=== PATIENT | female | born 1985 | race Caucasian/White ===

== ENCOUNTER 2020-03-11 17:29 | Outpatient (CLI) | payer OTHER, SELFPAY ==
[2020-03-11 17:30] VITALS: BP 166/109; PULSE 90; RESP 16; TEMP 36.1; O2SAT 99; BMI 48.8
--- NOTE | 2020-03-11 17:36 | ED.DCSUM_ITS ---
History of Present Illness Chief Complaint: Flank Pain Informant: Patient Narrative: 34-year-old female presenting with right flank pain. She states she is had this flank pain intermittently since Friday. Friday she went to [facility] where she was diagnosed with a 5 mm kidney stone. She was sent home with Percocet, Naprosyn, Flomax, Phenergan. She states he has had intermittent pain since then. It is worse today. She feels like she may have a UTI. She complains of dysuria. She has no vomiting but is nauseous. She is not had a fever. Patient is supposed to follow-up with Dr. ron tomorrow for initial visit. Past Medical History - Allergies and Home Meds Allergies/Adverse Reactions: Allergies nut - unspecified [nut] Allergy (Verified 03/11/20 18:40) Angioedema sumatriptan [From Imitrex] Allergy (Verified 03/11/20 18:40) Swelling morphine Adverse Reaction (Verified 03/11/20 18:40) Upset Stomach Primary Care Physician: Mello Ron MD [STAFF PHYSICIAN] - [facility] Doctor,Out of [NON-STAFF] - Prior records reviewed: Yes Lives: Spouse/ Significant Other Smoking Status: Unknown if ever smoked Alcohol: None Drugs: None Review of Systems General: Denies: Chills, Fever, Sweats Eyes: Denies: Visual changes - bilaterally, Diplopia ENT: Denies: Rhinorrhea, Sore throat Cardiovascular: Denies: Chest pain, Palpitations Respiratory: Denies: Dyspnea, Cough, Dyspnea on exertion Gastrointestinal: Reports: Abdominal pain - Right sided Genitourinary: Reports: Dysuria, Frequency Musculoskeletal: Reports: Myalgias, Arthralgias, - - Right-sided flank pain Skin: Denies: Rash Neurological: Reports: Headache, Weakness Physical Exam Vital Signs/Narrative: Vital Signs Temp Pulse Resp BP Pulse Ox 03/11/20 17:30 97 F L 90 16 166/109 H 99 General: Acute Distress Head: Normocephalic, Atraumatic Eyes: Perrl, EOMI ENT: Moist mucous membranes Cardiovascular: Regular rate, Regular rhythm Respiratory: No distress, CTA bilaterally Abdomen: Soft, Tender - Tenderness to palpation on the right flank and abdomen. Back: CVA tenderness - Right Extremities: Nontender, No edema Skin: Normal color, No rash Neurological: Alert, Oriented x3 Psychological: Tearful Diagnostic/Tx/Re-eval Clinical Impression(s) from Imaging Studies Abdomen/Pelvis CT 03/11/20 17:56 IMPRESSION: Bilateral renal calculi. Right hydronephrosis and hydroureter with a distal right ureteral stone suspected. Left ovarian cystic nodule. Small hiatal hernia. Hypoattenuated splenic nodule. Electronically Signed: Amrit PuenteDO at 19:02 EDT Tel [phone], Service support , Laboratory Data 03/11/20 03/11/20 03/11/20 18:05 18:05 18:10 WBC 8.0 RBC 4.66 Hgb 13.2 Hct 40.1 MCV 86.1 MCH 28.3 MCHC 32.9 RDW Std Deviation 42.3 RDW Coeff of Olu 13.6 Plt Count 273 MPV 9.0 Immature Gran % (Auto) 0.200 Neut % (Auto) 61.2 Lymph % (Auto) 30.8 [place] % (Auto) 6.3 Eos % (Auto) 1.1 Baso % (Auto) 0.4 Absolute Neuts (auto) 4.9 Absolute Lymphs (auto) 2.48 Nucleated RBC % 0 Sodium 138 Potassium 3.6 Chloride 108 H Carbon Dioxide 25.0 Anion Gap 5 BUN 12 Creatinine 0.96 Estim Creat Clear Calc 58.19 Est GFR (MDRD) Af Amer 84 Est GFR (MDRD) Non-Af 69 BUN/Creatinine Ratio 12.4 Glucose 93 Calcium 9.2 Urine Color Straw Urine Clarity Clear Urine pH 7.0 Ur Specific [place] 1.010 Urine Protein Negative Urine Glucose (UA) Normal Urine Ketones Negative Urine Occult Blood 150 H Urine Nitrite Negative Urine Bilirubin Negative Urine Urobilinogen Normal Ur Leukocyte Esterase Negative Urine RBC 5-10 SEEN Urine WBC 0 SEEN Ur Squamous Epith Cells 0-5 SEEN Urine Bacteria RARE Urine Mucus 0 SEEN - Medical Decision Making Patient presents with right flank pain which had been better throughout the week and now is acutely worsening. She is concerned she either has a urinary tract infection or 1 of the other kidney stones it was in her kidney is descended. I did repeat lab work and this is normal. Kidney function is normal. Urinalysis is negative for infection but does have blood. She was only given Toradol and she had almost total relief of her pain. CT abdomen pelvis does have a 4 mm ureteral stone. Patient states that she has had dysuria and felt like she was unable to void earlier. She also states that her last kidney stone from the other day was 5 mm. She states she still has Percocet at home and follow-up with Dr. Ariadne varela. It is unclear whether this is just a difference in CT read or this is a new kidney stone. He is given return precautions. Impression: 1. 4 mm right ureteral stone 2. Hematuria ED Disposition - Plan for ED Patient: Disposition: Home or Assisted Living Instructions: ED Renal Stone w Colic Referrals: [facility] Doctor,Out of [NON-STAFF] - Mello Ron MD [STAFF PHYSICIAN] -
--- NOTE | 2020-03-11 17:56 | CT_ITS ---
STUDY: CT ABDOMEN AND PELVIS WITHOUT CONTRAST REASON FOR EXAM: Female, 34 years old. RT FLANK PAIN -- HX:KIDNEY STONES,CHOLECYSTECTOMY, X 2 RADIATION DOSAGE (If Supplied By Facility): CTDIvol = ( 23.88 ) mGy, DLP = ( 1097.66 ) mGycm TECHNIQUE: Transaxial images were obtained from the dome of the diaphragm to the symphysis pubis without oral contrast, and without intravenous contrast. Sagittal and coronal images were reconstructed. Individualized dose optimization techniques were used for this CT. COMPARISON: 04/01/2013 FINDINGS: The visualized lung bases are unremarkable. The visualized portions of the heart are within normal limits. Normal liver. Status post cholecystectomy. No significant dilatation of the extrahepatic biliary system. 2 cm hypoattenuated nodule in the spleen. Normal pancreas. Normal bilateral adrenal glands. Nonobstructive up to 3 mm stones in the right kidney. Mild right hydronephrosis and hydroureter. A 4 mm distal right ureteral obstructive stone is suspected. Up to 5 mm nonobstructive stones in the left kidney. Small hiatal hernia. Normal small intestine. Normal colon. The appendix is visualized and appears normal. Normal abdominal aorta. Normal inferior vena cava. Normal retroperitoneum. Normal urinary bladder. Left ovarian 3.5 cm cystic nodule. Normal abdominal wall. Normal osseous structures. CT/Abdomen/Pelvis without Cont IMPRESSION: Bilateral renal calculi. Right hydronephrosis and hydroureter with a distal right ureteral stone suspected. Left ovarian cystic nodule. Small hiatal hernia. Hypoattenuated splenic nodule. Electronically Signed: Amrit Puente DO at 19:02 EDT Tel [phone], Service support ,
[2020-03-11] MEDS: Ondansetron 4 MG/2 ML Vial IV (18:01)
[2020-03-11] MEDS: Ketorolac 30 MG/ML Syringe IV (18:01)
[2020-03-11 18:16] LABS: Mucous, Urine 0 SEEN /hpf (<or=2+); White Blood Cells 0 SEEN /hpf (0-5)
[2020-03-11 18:18] LABS: Color, Urine Straw (Yellow); Glucose, Dipstick Normal (Normal); Ketone-Dipstick Negative (Negative); Leukocyte Esterase-Dipstick Negative /ul (Negative); Nitrite-Dipstick Negative (Negative); Occult Blood-Urine 150 /ul (Negative); Protein-Dipstick Negative (Negative); Urine Bilirubin Dipstick Negative (Negative); Urine Clarity Clear (Clear); Urine Urobilinogen Normal (Normal)
[2020-03-11 18:23] LABS: Red Blood Cells-Urine 5-10 SEEN /hpf (0-5)
[2020-03-11 18:24] LABS: Bacteria RARE /hpf (None Seen); Squamous Epithelial Cells - UA 0-5 SEEN /hpf (5-10)
[2020-03-11 18:24] LABS: Absolute Lymphocyte Count 2.48 X10^3/uL (0.83-4.51); Absolute Neutrophil Count 4.9 X10^3/uL (2.0-7.7); Basophil# 0.03 X10^3/uL; Basophil% 0.4 % (0-1); Eosinophil# 0.09 X10^3/uL; Eosinophils% 1.1 % (0-5); Hematocrit 40.1 % (37-47); Hemoglobin 13.2 g/dL (12.0-15.0); Lymphocyte # 2.48 X10^3/ul (4.0); Lymphocyte % 30.8 % (19-41); Mean Corp Hgb Conc 32.9 g/dL (32-36); Mean Corpuscular Hgb 28.3 pg (27.0-32.0); Mean Corpuscular Volume 86.1 fL (81-99); Monocyte# 0.51 X10^3/uL; Monocyte% 6.3 % (0-10); NRBC Flagged by Analyzer 0 % (0-5); Neutrophil # 4.91 X10^3/uL (2.7-7.7); Neutrophil % 61.2 % (47-70); Platelet Count 273 K/mm3 (150-450); RBC Distribution Width CV 13.6 % (11.6-14.6); RBC Distribution Width SD 42.3 fl (35.1-43.9); Red Blood Count 4.66 M/mm3 (4.2-5.4)
[2020-03-11 18:29] LABS: BUN 12 mg/dL (7-18); Creatinine, Serum 0.96 mg/dL (0.55-1.02); Estimated Creatinine Clearance 58.19 ml/min; Glucose 93 mg/dL (74-106)
[2020-03-11 18:30] LABS: Anion Gap 5 (5-15); BUN/Creat Ratio 12.4 RATIO (10-20); Calcium,Total 9.2 mg/dL (8.5-10.1); Chloride 108 mmol/L (98-107); EST Glomerular Filtration Rate 69 mL/min (>60); Est Glom Filt Rate - Afr Amer 84 mL/min (>60); Potassium 3.6 mmol/L (3.5-5.1); Sodium Level 138 mmol/L (136-145)
[2020-03-11 21:02] VITALS: BP 152/86; PULSE 85; RESP 16; O2SAT 98
== END 2020-03-14 18:11 ==
LOC: ED 20:35 → COVBMS 03-14 18:11
PROVIDERS: Emergency Provider Student in an Organized Health Care Education/Training Program; PCP Nurse Practitioner Family; Visit Provider Urology
DX: N20.1 Calculus of ureter (principal); R31.9 Hematuria, unspecified
CPT/HCPCS: 74176; 80048; 81001; 85025; 87635; 96374; 96375; 99283; J7030; A4216; J2405; U0003

== ENCOUNTER → 2020-03-14 17:28 | Outpatient (CLI) | payer OTHER, SELFPAY ==
[2020-03-11 17:30] VITALS: BMI 48.8
--- NOTE | 2020-03-14 17:42 | EKG12_ITS ---
Test Reason : PRE-OP Blood Pressure : / mmHG Vent. Rate : 065 BPM Atrial Rate : 065 BPM P-R Int : 130 ms QRS Dur : 080 ms QT Int : 428 ms P-R-T Axes : 035 051 030 degrees QTc Int : 445 ms Normal sinus rhythm Normal ECG Confirmed by BAILEE REED ([id number]), editor city KALEY SOLOMON ([id number]) on 03/17/2020 10:34:08 AM Referred By: Mello Ron Confirmed By:BAILEE REED
== END ==
PROVIDERS: PCP Nurse Practitioner Family; Referring Provider Urology; Visit Provider Urology
DX: Z01.810 Encounter for preprocedural cardiovascular examination (principal); I10 Essential (primary) hypertension; Z11.59 Encounter for screening for other viral diseases
CPT/HCPCS: 93005; 94799

== ENCOUNTER → 2022-01-11 | Outpatient (CLI) | payer OTHER, SELFPAY ==
[2022-01-11 14:14] LABS: Ammonia < 10.0 umol/L (11-32)
[2022-01-11 15:27] LABS: Erythrocyte Sedimentation Rate 19 mm/hr (0-30)
[2022-01-11 15:30] LABS: Absolute Lymphocyte Count 2.14 X10^3/uL (0.83-4.51); Absolute Neutrophil Count 4.6 X10^3/uL (2.0-7.7); Basophil# 0.03 X10^3/uL; Basophil% 0.4 % (0-1); Eosinophil# 0.04 X10^3/uL; Eosinophils% 0.6 % (0-5); Hematocrit 37.3 % (37-47); Hemoglobin 12.4 g/dL (12.0-15.0); Lymphocyte # 2.14 X10^3/ul (0.83-4.51); Lymphocyte % 29.8 % (19-41); Mean Corp Hgb Conc 33.2 g/dL (32-36); Mean Corpuscular Hgb 28.2 pg (27.0-32.0); Mean Corpuscular Volume 84.8 fL (81-99); Mean Platelet Vol. 9.2 fl (6.2-12.0); Monocyte# 0.37 X10^3/uL; Monocyte% 5.2 % (0-10); NRBC Flagged by Analyzer 0 % (0-5); Neutrophil # 4.56 X10^3/uL (2.7-7.7); Neutrophil % 63.6 % (47-70); Platelet Count 310 K/mm3 (150-450); RBC Distribution Width CV 13.1 % (11.6-14.6); RBC Distribution Width SD 40.7 fl (35.1-43.9); White Blood Count 7.2 K/mm3 (4.4-11.0)
[2022-01-11 15:36] LABS: Prothrombin Time (Protime)PT. 12.9 SECONDS (11.7-14.9)
[2022-01-11 15:45] LABS: Hemoglobin A1c 5.2 % (3.8-5.6)
[2022-01-11 16:51] LABS: BUN 10 mg/dL (7-18); Creatinine, Serum 0.92 mg/dL (0.55-1.02); Glucose 72 mg/dL (74-106)
[2022-01-11 16:52] LABS: ALB/GLOB Ratio 1.1 RATIO (0.9-2.4); AST(SGOT) 14 U/L (15-37); Alanine Aminotransfer ALT/SGPT 32 U/L (13-56); Albumin, Serum 3.7 g/dL (3.2-5.0); Alkaline Phosphatase 66 U/L (45-117); Anion Gap 5 (5-15); BUN/Creat Ratio 10.9 RATIO (10-20); Calcium,Total 8.8 mg/dL (8.5-10.1); Chloride 107 mmol/L (98-107); EST Glomerular Filtration Rate 72 mL/min (>60); Est Glom Filt Rate - Afr Amer 88 mL/min (>60); Ferritin 13 ng/mL (8-252); Globulin 3.5 g/dL (2.2-4.2); LDH 195 U/L (84-246); Potassium 3.1 mmol/L (3.5-5.1); Protein, Total 7.2 g/dL (6.4-8.2); Sodium Level 139 mmol/L (136-145)
[2022-01-11 17:16] LABS: Amylase 53 U/L (25-115); Lipase 130 U/L (73-393)
[2022-01-11 17:17] LABS: HIV - WCH Non-Reactive (Nonreactive)
[2022-01-14 14:08] LABS: Anti-Centromere B Ab <0.2 AI (0.0-0.9); Anti-Chromatin <0.2 AI (0.0-0.9); Anti-Jo <0.2 AI (0.0-0.9); Anti-Scleroderma-70 AB <0.2 AI (0.0-0.9); RNP Ab <0.2 AI (0.0-0.9); SJOGREN'S Anti-SS-A test < 0.2 AI (0.0-0.9); SJOGREN'S Anti-SS-B test < 0.2 AI (0.0-0.9); Smith Ab <0.2 AI (0.0-0.9)
[2022-01-14 16:08] LABS: Endomysial Antibody IgA Negative (Negative)
[2022-01-14 20:16] LABS: Immunoglobulin A 137 mg/dL (87-352); t-Transglutaminase IgA <2 U/mL (0-3)
[2022-01-14 20:19] LABS: Anti-Mitochondrial AB <20.0 Units (0.0-20.0); Anti-dsDNA Ab 3 IU/mL (0-9)
[2022-01-19 12:08] LABS: Albumin 3.8 g/dL (2.9-4.4); Alpha-1-Globulins 0.3 g/dL (0.0-0.4); Alpha-2-Globulins 0.8 g/dL (0.4-1.0); Angiotensin Convert Enzyme 40 U/L (14-82); Ceruloplasmin 28.5 mg/dL (19.0-39.0); Cytoplasmic Ab (C-ANCA) <1:20 titer (Neg:<1:20); Gamma Globulin 0.8 g/dL (0.4-1.8); HEPATITIS B SURFACE AG Negative (Negative); Hep C Antibodies <0.1 s/co ratio (0.0-0.9); Hepatitis A IgM Antibody Negative (Negative); Hepatitis B Core AB IgM Negative (Negative); Immunoglobulin A 135 mg/dL (87-352); Immunoglobulin E 5 IU/mL (6-495); Immunoglobulin G 766 mg/dL (586-1602); Immunoglobulin M 127 mg/dL (26-217); PROEL- TOTAL PROTEIN 6.7 g/dL (6.0-8.5)
[2022-01-19 19:45] LABS: Anti-Smooth Muscle ABS 22 Units (0-19); Haptoglobin 183 mg/dL (33-278)
[2022-01-19 19:47] LABS: AFP, Tumor Marker 1.2 ng/mL (0.0-6.4); Copper, Serum or Plasma 130 ug/dL (80-158); Perinuclear Ab (P-ANCA) <1:20 titer (Neg:<1:20)
== END | disposition home or self-care (01) ==
PROVIDERS: Referring Provider Internal Medicine Gastroenterology; Visit Provider Internal Medicine Gastroenterology
DX: K76.0 Fatty (change of) liver, not elsewhere classified (principal); R10.9 Unspecified abdominal pain
CPT/HCPCS: 36415; 80053; 80074; 82105; 82140; 82150; 82164; 82390; 82525; 82728; 82784; 82785; 83010; 83036; 83516; 83615; 83690; 84165; 85025; 85610; 85652; 86140; 86225; 86235; 86255; 86256; 86334; 86703

== ENCOUNTER → 2022-02-15 | Outpatient (CLI) | payer OTHER, SELFPAY ==
--- NOTE | 2022-02-15 07:20 | US_ITS ---
STUDY: ABDOMINAL ULTRASOUND - RIGHT UPPER QUADRANT REASON FOR VISIT: Female, 36 years old fatty liver TECHNIQUE: Ultrasound evaluation of the right upper quadrant was performed with real-time and static orozco-scale imaging. TECHNICAL QUALITY: Adequate. COMPARISON: None. FINDINGS: Liver: The liver measures 16.1 cm. There is increased echogenicity consistent with fatty infiltration. The bile ducts are within normal limits. There is hepatic color flow. The direction of portal flow is hepatopetal. There is no demonstrated mass lesion. Gallbladder: The patient is status post cholecystectomy. Common Bile Duct (C.B.D.): The common bile duct measures 5.1 mm. Pancreas: Normal size of the head, body and tail of the pancreas. There is normal echogenicity of the pancreas. There is no demonstrated pancreatic mass or cyst. Right Kidney: Normal size of the right kidney. The right kidney measures 9.5 cm x 5 cm x 4.6 cm. Normal renal cortex. The right cortex measures 1.2 cm. There is no demonstrated renal mass or cyst. There is no right hydronephrosis. Findings suggestive of a 4 mm calculus in the right kidney. US/Abdomen Limited IMPRESSION: Fatty infiltration of the liver. Electronically Signed: Artur Soto MD at 8:42 EDT ,
--- NOTE | 2022-02-15 07:20 | US_ITS ---
STUDY: ABDOMINAL ULTRASOUND - ELASTOGRAPHY REASON FOR VISIT: Female, 36 years old. Fatty infiltration of the liver. TECHNIQUE: Liver stiffness measurements were obtained on a [employer] RS 85 ultrasound machine using a CA 1-7 probe following the SRU guidelines. 3 measurements were obtained using a 2-D-SWE method. The IQR/M was 22% suggesting a quality data set. TECHNICAL QUALITY: Adequate. COMPARISON: Comparison is made with prior study done earlier today. FINDINGS: Liver: Fatty infiltration of the liver. Median liver stiffness measured 4.3 kPa. US/Elastography Parenchyma/Organ IMPRESSION: Liver stiffness measures 4.3 kPa compatible with FO (Normal) Metavir score. Electronically Signed: Artur Soto MD at 8:45 EDT ,
== END | disposition home or self-care (01) ==
LOC: US 07:20
PROVIDERS: Referring Provider Internal Medicine Gastroenterology; Visit Provider Internal Medicine Gastroenterology
DX: K76.0 Fatty (change of) liver, not elsewhere classified (principal); R10.9 Unspecified abdominal pain
CPT/HCPCS: 76705; 76981

== ENCOUNTER → 2022-03-04 | Outpatient (CLI) | payer OTHER, SELFPAY ==
[2022-03-04 15:12] LABS: ALB/GLOB Ratio 1.1 RATIO (0.9-2.4); AST(SGOT) 13 U/L (15-37); Alanine Aminotransfer ALT/SGPT 20 U/L (13-56); Albumin, Serum 3.6 g/dL (3.2-5.0); Alkaline Phosphatase 58 U/L (45-117); Anion Gap 6 (5-15); BUN 9 mg/dL (7-18); BUN/Creat Ratio 10.6 RATIO (10-20); Calcium,Total 8.9 mg/dL (8.5-10.1); Chloride 107 mmol/L (98-107); Creatinine, Serum 0.85 mg/dL (0.55-1.02); EST Glomerular Filtration Rate 79 mL/min (>60); Est Glom Filt Rate - Afr Amer 96 mL/min (>60); Globulin 3.3 g/dL (2.2-4.2); Glucose 74 mg/dL (74-106); Potassium 3.3 mmol/L (3.5-5.1); Protein, Total 6.9 g/dL (6.4-8.2); Sodium Level 141 mmol/L (136-145)
[2022-03-09 10:08] LABS: Immunoglobulin A 137 mg/dL (87-352); Immunoglobulin E 5 IU/mL (6-495); Immunoglobulin G 765 mg/dL (586-1602); Immunoglobulin M 130 mg/dL (26-217)
[2022-03-10 09:13] LABS: Anti-Smooth Muscle ABS 20 Units (0-19)
== END | disposition home or self-care (01) ==
PROVIDERS: Referring Provider Internal Medicine Gastroenterology; Visit Provider Internal Medicine Gastroenterology
DX: R10.9 Unspecified abdominal pain (principal)
CPT/HCPCS: 36415; 80053; 82784; 82785; 83516; 86140

== ENCOUNTER → 2022-07-15 | Outpatient (CLI) | payer OTHER, SELFPAY ==
[2022-07-15 16:11] LABS: Erythrocyte Sedimentation Rate 9 mm/hr (0-30)
[2022-07-15 16:13] LABS: Absolute Lymphocyte Count 2.58 X10^3/uL (0.83-4.51); Absolute Neutrophil Count 5.2 X10^3/uL (2.0-7.7); Basophil# 0.04 X10^3/uL; Basophil% 0.5 % (0-1); Eosinophil# 0.08 X10^3/uL; Hematocrit 39.9 % (37-47); Hemoglobin 12.9 g/dL (12.0-15.0); Lymphocyte # 2.58 X10^3/ul (0.83-4.51); Lymphocyte % 30.8 % (19-41); Mean Corp Hgb Conc 32.3 g/dL (32-36); Mean Corpuscular Hgb 27.4 pg (27.0-32.0); Mean Corpuscular Volume 84.9 fL (81-99); Monocyte# 0.44 X10^3/uL; Monocyte% 5.3 % (0-10); NRBC Flagged by Analyzer 0 % (0-5); Neutrophil % 61.9 % (47-70); Platelet Count 301 K/mm3 (150-450); RBC Distribution Width CV 13.5 % (11.6-14.6); RBC Distribution Width SD 42.3 fl (35.1-43.9); White Blood Count 8.4 K/mm3 (4.4-11.0)
[2022-07-15 16:30] LABS: AST(SGOT) 9 U/L (15-37); Alanine Aminotransfer ALT/SGPT 22 U/L (13-56); Albumin, Serum 3.8 g/dL (3.2-5.0); Alkaline Phosphatase 67 U/L (45-117); Anion Gap 6 (5-15); BUN 14 mg/dL (7-18); BUN/Creat Ratio 14.7 RATIO (10-20); CRP 7.75 mg/L (0.0-3.0); Chloride 108 mmol/L (98-107); Creatinine, Serum 0.95 mg/dL (0.55-1.02); EST Glomerular Filtration Rate 69 mL/min (>60); Est Glom Filt Rate - Afr Amer 84 mL/min (>60); Globulin 3.4 g/dL (2.2-4.2); Glucose 91 mg/dL (74-106); LDH 186 U/L (84-246); Potassium 3.3 mmol/L (3.5-5.1); Protein, Total 7.2 g/dL (6.4-8.2); Sodium Level 140 mmol/L (136-145)
[2022-07-15 17:01] LABS: Hepatitis B Surface Antibody Non-Reactive; Hepatitis B Surface Antigen Non-Reactive (Nonreactive); Hepatitis C Antibody Non-Reactive (Nonreactive)
[2022-07-17 16:09] LABS: Anti-Centromere B Ab <0.2 AI (0.0-0.9); Anti-Chromatin <0.2 AI (0.0-0.9); Anti-Jo <0.2 AI (0.0-0.9); Anti-Scleroderma-70 AB <0.2 AI (0.0-0.9); RNP Ab <0.2 AI (0.0-0.9); SJOGREN'S Anti-SS-A test < 0.2 AI (0.0-0.9); SJOGREN'S Anti-SS-B test < 0.2 AI (0.0-0.9); Smith Ab <0.2 AI (0.0-0.9)
[2022-07-17 17:07] LABS: Cytoplasmic Ab (C-ANCA) <1:20 titer (Neg:<1:20); QNTFERON TB Mitogen Value > 10.00 IU/mL (.); QNTFERON TB Nil Value 0.12 IU/mL (.); QNTFERON TB1+ Ag Value 0.11 IU/mL (.); QNTFERON TB2+ Ag Value 0.09 IU/mL (.)
[2022-07-17 22:08] LABS: Hepatitis B Core Ab Total Negative (Negative); Perinuclear Ab (P-ANCA) <1:20 titer (Neg:<1:20); QNTIFERON TB Positive Criteria Negative (Negative)
[2022-07-17 22:10] LABS: Anti-dsDNA Ab 3 IU/mL (0-9)
== END | disposition home or self-care (01) ==
LOC: LAB 14:13
PROVIDERS: Referring Provider Internal Medicine Gastroenterology; Visit Provider Internal Medicine Gastroenterology
DX: L40.0 Psoriasis vulgaris (principal); L40.59 Other psoriatic arthropathy; T49.0X5A Adverse effect of local antifungal, anti-infective and anti-inflammatory drugs, initial encounter; Z79.899 Other long term (current) drug therapy
CPT/HCPCS: 36415; 80048; 80076; 83615; 85025; 85652; 86140; 86225; 86235; 86256; 86480; 86704; 86706; 86803; 87340

== ENCOUNTER → 2022-08-09 | Outpatient (CLI) | payer OTHER, SELFPAY ==
--- NOTE | 2022-08-09 09:33 | NM_ITS ---
CLINICAL: 37-year-old female with history of clinical gastroparesis. SEMI-SOLID PHASE 99m Tc SULFUR COLLOID GASTRIC EMPTYING STUDY COMPARISON: None available FINDINGS: The patient was administered 1.1 mCi of 99m Tc sulfur colloid mixed with oatmeal and consumed per os. Image acquisitions in the anterior-posterior projections were obtained for 60 minutes. There is prompt visualization of the stomach. There is no gastroesophageal reflux identified. The T ? raw data emptying was calculated to be 56.52 minutes, (Normal: 12-56 minutes). NM/Gastric Emptying Study IMPRESSION: 1. UPPER LIMITS of NORMAL 99m Tc sulfur colloid semi-solid phase (oatmeal) gastric emptying imaging examination. A. There is borderline normal semi-solid phase gastric emptying compared to normal controls. (Cheyanne et al, J Nucl Med Tech 38: 186, 2010). Electronically Signed: Rickie Dutta, at 10:50 EST ,
== END | disposition home or self-care (01) ==
LOC: NM 09:32
PROVIDERS: Visit Provider Internal Medicine Gastroenterology
DX: R19.8 Other specified symptoms and signs involving the digestive system and abdomen (principal); K76.0 Fatty (change of) liver, not elsewhere classified
CPT/HCPCS: 78264; A9541

== ENCOUNTER → 2022-08-16 | Outpatient (CLI) | payer OTHER, SELFPAY ==
[2022-08-19 22:28] LABS: Calprotectin, Stool 62 ug/g (0-120)
== END | disposition home or self-care (01) ==
LOC: LABSPEC 11:06
PROVIDERS: Referring Provider Internal Medicine Gastroenterology; Visit Provider Internal Medicine Gastroenterology
DX: R19.8 Other specified symptoms and signs involving the digestive system and abdomen (principal); K58.9 Irritable bowel syndrome, unspecified
CPT/HCPCS: 83630; 83993

== ENCOUNTER 2023-06-04 06:08 | Day surgery (SDC) | payer OTHER, SELFPAY ==
--- NOTE | 2023-06-03 07:15 | COLBX_PTH ---
PATIENT: DARYN DAVIS LOC: EN U#:[id number] AGE/SX: 37/F ROOM: RE06/04/[address]: Dr. Petar Woodward DO : 1985 BED: DIS: 06/04/2023 SPEC #: [id number] RECD: 06/04/23 10:42 STATUS: GUNNER BONITA #: [id number] AARTI: 06/03/23 07:[address]: Petar Woodward DEPT: SURGICAL PATHOLOGY RECD BY: Sarah Walsh ENTERED: 06/04/23 11:45 SP TYPE: COLON BX OTHR DR: Sandy Primary Care Phys Tissues: A - Ileum, NOS B - COLON BIOPSY Procedures: Surgery Specimen Level IV HEADER OPERATION: Colonoscopy with biopsy PRE-OP DIAGNOSIS: Alternating constipation/diarrhea, abdominal pain, abnormal antibody titer, fatty liver, IgE deficiency, hiatal hernia TISSUE SUBMITTED: A - Terminal ileum, B - Random colon MICROSCOPIC DIAGNOSIS A. Terminal ileum, biopsy: No pathologic change. B. Colon, random biopsy: Melanosis coli. AM:aleyda 06/05/2023 MICROSCOPIC DESCRIPTION Slides are reviewed. GROSS DESCRIPTION A - Received in fixative is one container labeled with the patient's name and designated terminal ileum. The specimen consists of two irregular fragments of light pugh soft tissue that in aggregate measure 0.8 x 0.3 x 0.1 cm. The specimen is totally submitted in one cassette. B - Received in fixative is one container labeled with the patient's name and designated random colon. The specimen consists of multiple irregular fragments of light pugh soft tissue that in aggregate measure 1.5 x 0.4 x 0.1 cm. The specimen is totally submitted in one cassette. / SJ:aleyda 06/04/2023 TC:5 [facility]: [id number] x2
[2023-06-04 06:20] VITALS: BP 131/80; PULSE 88; RESP 18; TEMP 36.6; O2SAT 100; BMI 40.4
[2023-06-04] MEDS: Lactated Ringers 1,000 ML 15 ML IV (06:25)
--- NOTE | 2023-06-04 07:30 | PCM.HP.BLA ---
History and Physical Date of Admission: 06/04/23 7 F who presents to the office today for PMH depression/anxiety; gastritis; psoriatic arthritis (Stelara, with failure of Humira). PCP OV noting difficulty with abdominal burning/pain, constipation, decreased appetite with unintentional weight loss of 40+lbs since CT abd/pel 4.1.22 small hiatal hernia; fatty infiltration of liver; cholecystectomy clips; anterior splenic cyst; punctate bilateral nephrolithiasis suspected. *BGI established 01.11.22 Following COVID infection in 2019 she has been having periods of epigastric pain/swelling, left sided mid-abdomen circumferential pain, constipation alternating with diarrhea that can be yellow; increasing fibers attempted. rubbing her abdomen promote BM and he feels he can palpate and inflammatory injury. Reports EGD and colonoscopy within the last two years ? she reports no abnormalities. New diagnosis of BERNARD. Biochemical CBC, ESR, haptoglobin, CMP (K+L3.1), coag, A1c, amylase, lipase, VANDANA, AFP, copper, ammonia, GAME(L5), ZAINAB, ANCA, Celiac, MUKESH comp, AMA, Hep A all without pertinent abnormalities. CRP H11.5, ASM H20, AST L14-ALT 32-AP66 ? US and elastography 02.15.22 liver measurement 16.1cm with fatty infiltration, stiffness 4.3kPa. ?OV 8.22 intermittent LUQ abdominal pain, early satiety, nausea, fatigue upper abdominal swelling/soreness. Feels symptoms are associated with yeast infections and vaginal bleeding; also feels her splenic cyst is the cause of her inconsistent BM pattern (alternates between lack of BM and frequent soft/sticky stools). Biochemical CMP, IgGAME(L5) without pertinent abnormalities CRP H10.60, AST L13-ALT 20-AP 58, ASM H20 Capsule endoscopy 10.3.22 small AVM. No recommendations based on this study. OV 12. doing well. Feels when psoriasis flares he abdominal discomfort/upset stomach also flares. Notes trigger of breads/sugars and has been reducing this. BM pattern varies with days of no BM then frequent soft/sticky stools Biochemical LDH, ESR, MUKESH comp, ANCA, TB without pertinent abnormality. CRP H7.75, Crohn?s (ALCA, AMCA, atypical pANCA). Stool calprotectin, lactoferrin WNL. Gastric emptying study 08.10.22 56.52 minutes (12-56). OV 12.09.22 GI unaware she was being treated with Stelara for RA. Possible change to Rinvoq as Stelara may not be controlling Crohn?s. ? Biochemical CBC, ESR, CMP, AMA, ASM not performed. ? MREnterography not performed OV 04.03.23 She was having insurance difficulty which is why she did not get biochemical and MREnterography; insurance difficulty is resovled. Continues to have alternating constipation (no BM with bloating and flatulence requiring medication intervention) and frequent 6+/day soft/sticky BM for several days with abdominal cramping/pain that is relieved with BM. ROS Const Constitutional: Positive for fatigue and headache(s) ENT ENT: Positive for headache(s); No difficulty swallowing Gastro GI: Positive for abdominal pain, bloating, change in bowel habits, constipation, heartburn, excessive flatus and nausea/dyspepsia; No belching, change in stool character, coffee ground emesis, cramping, diarrhea, difficulty swallowing, feeling full early, incontinent of stools, Vomiting blood/hematemesis, Blood in stool, loose stools, Black,tarry stools, pain with swallowing, vomiting or other Musc Musculoskeletal: Positive for joint pain, joint swelling, muscle cramps, numbness, stiffness, tingling, Arthritis and restless legs Skin Skin: No yellowing of the eye or itchy eyes Neuro Neurology: Positive for headache(s), numbness, tingling and restless legs Psych Psychiatric: Positive for anxiety and No depression Endo Endocrine: Positive for fatigue Aller/Imm Allergy/Immunologic: No itchy eyes Daniel/Lymp Hematologic/Lymphatic: No easy bleeding or easy bruising Exam Const General: cooperative and no acute distress Nutritional Appearance: obese Orientation: alert, awake and oriented x3 HENMT Head: normal to inspection Eyes Sclera: sclerae normal Resp Effort & Inspection: normal respiratory effort GI Inspection: obesity Palpation: soft, no hepatosplenomegaly, no masses and tender in the epigastrum Skin Other: rosacea type rash on cheeks Neuro Gait: normal gait Psych Mood: congruent mood Quality Reporting Tobacco Screening ([facility] 138) Smoking Status: Former smoker Assessment and Plan Assessment and Plan (1) Alternating constipation and diarrhea: Status: Chronic Plan: Labs are suspicious for Crohn's with likely high risk behavior (strictures and fissures). I don't think we realized she has been on Stelara for psoriasis and psoriatic arthritis; she has been taking it intermittently. Update labs today. Has had hypokalemia, +ASMA (but normal liver enzymes, no evidence of AIH or PBC), elevated CRP. No inflammation in the colon per stool tests. Needs EGD and colonoscopy. MR enterography ordered. Consider Rinvoq when it is approved for Crohn's, and would also treat psoriatic arthritis. Recommend seeing Rheum for psoriatic arthritis, ?fibromyalgia. (2) Abdominal pain: Status: Chronic Qualifiers: Abdominal location: generalized Qualified Code(s): R10.84 - Generalized abdominal pain Plan: as abive (3) Abnormal antibody titer: Status: Chronic Plan: as above (4) Fatty liver: Status: Chronic Plan: She does have nonalcoholic fatty liver disease with liver size of 20 cm. On her elastography she was in F0. We do not recommend any medical therapy regarding her nonalcoholic fatty liver disease diagnosis. Since she is never 0 she does not have a Bernard. LFTs have been normal. She is antibody positive for anti-smooth muscle antibody. This is one of the antibodies that is part of the diagnosis for autoimmune hepatitis. I do not think she has any signs or symptoms of ongoing hepatitis at this time. Her autoimmune hepatitis calculation was low at 2 with a diagnosis most likely at a diagnosis of at least 8. We will continue to monitor her labs and imaging and encouraged weight loss. (5) IgE deficiency: Status: Acute Plan: She has had persistently low IgE. I suggested that she see circuit board assembler as she is concerned about recurrent Patricia infections. (6) Hiatal hernia: Status: Acute Plan: She does have a nice sized sliding hiatal hernia and I think with PPI usage it is helping some of her bloating. I am not sure if this is contributing to her symptoms but she would need a gastric emptying study, upper GI series with barium and likely esophageal motility. She is not having any reflux symptoms at this time, therefore I am recommending that she continue with pantoprazole therapy. Medications: New hyoscyamine sulfate 0.125 mg PO TID PRN I have examined the patient and the H&P has been reviewed. There are no clinical changes since date of exam.
--- NOTE | 2023-06-04 07:55 | OP.COLON_ITS ---
Patient Name: Meenu Alexander Procedure Date: 06/04/2023 7:27 AM Date of : 1985 Age: 37 Procedure: Colonoscopy Indications: Generalized abdominal pain, Clinically significant diarrhea of unexplained origin Providers: Petar Woodward DO Medicines: Monitored Anesthesia Care Patient Profile: This is a 37 year old female. Refer to note in patient chart for documentation of history and physical. Last Colonoscopy: date unknown. Unable to locate last colonoscopy report. Complications: No immediate complications. Procedure: Pre-Anesthesia Assessment: - Prior to the procedure, a History and Physical was performed, and patient medications and allergies were reviewed. The patient is competent. The risks and benefits of the procedure and the sedation options and risks were discussed with the patient. All questions were answered and informed consent was obtained. Patient identification and proposed procedure were verified by the physician. Mental Status Examination: alert and oriented. Airway Examination: normal oropharyngeal airway and neck mobility. Respiratory Examination: clear to auscultation. CV Examination: normal. Prophylactic Antibiotics: The patient does not require prophylactic antibiotics. Prior Anticoagulants: The patient has taken no anticoagulant or antiplatelet agents. ASA Grade Assessment: II - A patient with mild systemic disease. After reviewing the risks and benefits, the patient was deemed in satisfactory condition to undergo the procedure. The anesthesia plan was to use monitored anesthesia care (MAC). Immediately prior to administration of medications, the patient was re-assessed for adequacy to receive sedatives. The heart rate, respiratory rate, oxygen saturations, blood pressure, adequacy of pulmonary ventilation, and response to care were monitored throughout the procedure. The physical status of the patient was re-assessed after the procedure. After I obtained informed consent, the scope was passed under direct vision. Throughout the procedure, the patient's blood pressure, pulse, and oxygen saturations were monitored continuously. The Colonoscope was introduced through the anus and advanced to the terminal ileum. The colonoscopy was performed without difficulty. The patient tolerated the procedure well. The quality of the bowel preparation was good. The terminal ileum, ileocecal valve, appendiceal orifice, and rectum were photographed. Scope In: 7:36:41 AM Scope Withdrawal Time 0 hours 8 minutes 43 seconds Scope Out: 7:49:09 AM Total Procedure Duration Time 0 hours 12 minutes 28 seconds Findings: The perianal and digital rectal examinations were normal. An area of mildly congested mucosa was found in the recto-sigmoid colon, at the hepatic flexure, in the ascending colon and in the cecum. Verification of patient identification for the specimen was done. Estimated blood loss was minimal. The terminal ileum appeared normal. Biopsies were taken with a cold forceps for histology. Verification of patient identification for the specimen was done. Estimated blood loss was minimal. Impression: - Congested mucosa in the recto-sigmoid colon, at the hepatic flexure, in the ascending colon and in the cecum. - The examined portion of the ileum was normal. Biopsied. Recommendation: - Discharge patient to home. - Resume previous diet. - Continue present medications. - Await pathology results. - Repeat colonoscopy in 5 years for surveillance. Procedure Code(s): --- Professional --- 51601, Colonoscopy, flexible; with biopsy, single or multiple CPT copyright 2021 [employer]. All rights reserved. The codes documented in this report are preliminary and upon beading sawyer review may be revised to meet current compliance requirements. Petar Woodward DO 06/04/2023 7:54:44 AM This report has been signed electronically. Number of Addenda: 0 Note Initiated On: 06/04/2023 7:27 AM
[2023-06-04 07:56] VITALS: BP 111/71; BP 131/80; PULSE 66; RESP 18; TEMP 36.7; O2SAT 100
[2023-06-04 08:00] VITALS: BP 120/78; BP 131/80; PULSE 62; RESP 18; O2SAT 100
[2023-06-04 08:04] VITALS: BP 122/72; BP 131/80; PULSE 66; RESP 12; O2SAT 100
[2023-06-04 08:08] VITALS: BP 130/97; BP 131/80; PULSE 61; RESP 12; TEMP 36.4; O2SAT 100
[2023-06-04 08:33] VITALS: BP 131/80
== END 2023-06-04 08:42 | disposition home or self-care (01) ==
LOC: EN 06:08 → AC 06:11
PROVIDERS: Referring Provider Internal Medicine Gastroenterology; Visit Provider Internal Medicine Gastroenterology
PROC: 0DJD8ZZ Inspection of Lower Intestinal Tract, Via Natural or Artificial Opening Endoscopic (ICD-10-PCS; CPT 45378; principal; 2023-06-04 07:10)
DX: K63.89 Other specified diseases of intestine (principal); D80.8 Other immunodeficiencies with predominantly antibody defects; Z87.891 Personal history of nicotine dependence; K59.00 Constipation, unspecified; K76.0 Fatty (change of) liver, not elsewhere classified; R76.0 Raised antibody titer; K44.9 Diaphragmatic hernia without obstruction or gangrene; Z79.899 Other long term (current) drug therapy; I10 Essential (primary) hypertension; K21.9 Gastro-esophageal reflux disease without esophagitis
CPT/HCPCS: 45380; 88305; J7120